=== PATIENT | female | born 1970 | race Caucasian/White ===

== ENCOUNTER → 2019-12-24 16:13 | Outpatient (CLI) | payer OTHER, MEDICAID, SELFPAY ==
--- NOTE | 2019-12-24 | DI.MRI.S_ITS ---
PROCEDURE: MR BRAIN (IAC) WWO CON INDICATIONS: Other abnormal auditory perceptions, bilateral TECHNIQUE: Noncontrast sagittal T1 spin echo, axial FLAIR, axial gradient echo, axial diffusion and ADC through the brain. Axial thin-slice 3D CISS, coronal TruFISP, axial T1 spin echo with fat saturation through the internal auditory canals. After the administration of contrast, thin slice axial and coronal T1 spin echo with fat saturation through the internal auditory canals, and axial T1 spin echo with fat saturation through the brain. COMPARISON: [facility], CT, SINUS WITHOUT CONTRAST, 01/03/2012, 13:27. FINDINGS: Image quality: Excellent. Cranial nerves: No cerebellopontine angle masses. Visualized cranial nerves demonstrate no areas of abnormal signal, mass lesion or enhancement. CSF spaces: Ventricles are normal in size and shape. No extra-axial fluid collections. Basal cisterns are patent. Brain: No intracranial bleeds or mass effects. Ennis-white matter interface is intact. No abnormal intracranial enhancement. Diffusion weighted images demonstrate no acute ischemic insults. Brainstem appears normal. Normal intravascular flow voids are present. Minimal scattered T2/FLAIR hyperintensities are present within the periventricular and subcortical white matter. Skull and face: Calvarial marrow signal is normal. Orbits appear normal. Sinuses: Sinuses and mastoids are clear. IMPRESSION: 1. No acute intracranial process. 2. Minimal T2/FLAIR hyperintensities as above. These are overall nonspecific and could be related to early changes of chronic microvascular ischemia. Other etiologies such as vasculitis, migraine sequela or demyelinating disease in appropriate clinical setting cannot be excluded. 3. No visualized areas of abnormal signal, enhancement or mass lesion within the visualized cranial nerves or cerebellopontine angles. Dictated by: Breanna Krause M.D. on 12/25/2019 at 8:32 Approved by: Breanna Krause M.D. on 12/25/2019 at 8:37
== END ==
PROVIDERS: Family Provider Physician Assistant Medical; PCP Physician Assistant Medical; Referring Provider Otolaryngology; Visit Provider Otolaryngology
DX: H93.293 Other abnormal auditory perceptions, bilateral (principal); R42 Dizziness and giddiness
CPT/HCPCS: 70553; A9579

== ENCOUNTER 2020-12-30 04:37 | Emergency (ER) | payer OTHER, MEDICAID, SELFPAY ==
[2020-12-30 04:45] VITALS: BP 119/54; PULSE 96; RESP 20; TEMP 36.4; O2SAT 96; BMI 32.5
--- NOTE | 2020-12-30 04:58 | DI.RAD.S_ITS ---
PROCEDURE: XR CHEST 2V INDICATIONS: trauma, sternal pain TECHNIQUE: 2 views of the chest were acquired. COMPARISON: None. FINDINGS: Surgical changes and devices: None. Lungs and pleura: No consolidative opacity. Mildly prominent diffuse pulmonary markings versus is overlying soft tissue. No pleural effusions or pneumothorax. Mediastinum: Mediastinal contours are normal. Heart size appears prominent. Bones and chest wall: No suspicious bony abnormalities. No fracture identified. Intact thoracic spine scoliosis Galo vasile. Soft tissues appear unremarkable. IMPRESSION: No fracture identified. If clinically indicated consider CT chest for further evaluation. Question of diffuse increased pulmonary markings. This could be due pulmonary vasculature engorgement, atelectasis, or interstitial disease. This report is concordant with the overnight preliminary interpretation. Dictated by: Samuel Lockett M.D. on 12/30/2020 at 7:55 Approved by: Samuel Lockett M.D. on 12/30/2020 at 7:59
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
[2020-12-30] MEDS: OXYCODONE/ACETAMINOPHEN 5/325 TABLET 1 TAB PO (05:08)
[2020-12-30] MEDS: KETOROLAC 60 MG/2 ML VIAL 30 MG IM (05:08)
[2020-12-30 05:36] VITALS: BP 121/60; PULSE 88; RESP 20; O2SAT 96
== END 2020-12-30 05:45 | disposition home or self-care (01) ==
PROVIDERS: Emergency Provider Emergency Medicine; Family Provider Physician Assistant Medical; PCP Physician Assistant Medical
DX: S20.219A Contusion of unspecified front wall of thorax, initial encounter (principal); V89.2XXA Person injured in unspecified motor-vehicle accident, traffic, initial encounter
CPT/HCPCS: 71046; 96372; 99283; 99284; J1885

== ENCOUNTER 2022-08-07 21:45 | Emergency (ER) | payer OTHER, MEDICAID, SELFPAY ==
[2022-08-07 22:05] VITALS: BP 118/59; PULSE 84; RESP 18; TEMP 37; O2SAT 97
[2022-08-07] MEDS: TET,DIPH,PERTUSS(ACELL),VAC/PF 0.5 ML SYRINGE IM (23:15)
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
== END 2022-08-08 05:40 | disposition home or self-care (01) ==
PROVIDERS: Emergency Provider Emergency Medicine; Family Provider Physician Assistant Medical; PCP Physician Assistant Medical
DX: L02.511 Cutaneous abscess of right hand (principal)
CPT/HCPCS: 90471; 99283; 90715